=== PATIENT | female | born 1980 | race Caucasian/White ===

== ENCOUNTER 2016-12-19 10:11 | Emergency (ER) | payer MEDICAID ==
[~2016-12-19] VITALS: Ht 175.3 cm; Wt 206.9 kg
[2016-12-19 10:13] VITALS: BP 119/76
[2016-12-19] MEDS ORDERED: MAALOX/HYOSCYAMINE/LIDOCAINE 45 ML BOTTLE PO ONE (11:30)
[2016-12-19] MEDS ORDERED: MAALOX/HYOSCYAMINE/LIDOCAINE 45 ML BOTTLE ONE (11:30)
[2016-12-19 12:09] LABS: BLOOD UREA NITROGEN 16 mg/dL (7-18)
[2016-12-19 12:15] LABS: IS PT STATUS REG ER OR PRE ER? YES
== END 2016-12-19 13:19 | disposition home or self-care (01) ==
LOC: ED 13:00
DX: S29.012A Strain of muscle and tendon of back wall of thorax, initial encounter (principal); R07.89 Other chest pain; Z90.49 Acquired absence of other specified parts of digestive tract; E66.9 Obesity, unspecified; X58.XXXA Exposure to other specified factors, initial encounter; Y93.89 Activity, other specified; Y92.89 Other specified places as the place of occurrence of the external cause; Y99.8 Other external cause status
CPT/HCPCS: 36415; 71010; 80048; 82040; 84484; 85025; 85379; 93005

== ENCOUNTER 2018-03-18 11:59 | Emergency (ER) | payer MEDICAID ==
[~2018-03-18] VITALS: Ht 172.7 cm; Wt 212.7 kg
[2018-03-18 12:13] VITALS: BP 145/92
[2018-03-18] MEDS ORDERED: DULO30CA2 PO (12:23)
[2018-03-18] MEDS ORDERED: HYDR-879 PO (12:23)
[2018-03-18] MEDS ORDERED: DEXAMETHASONE 4 MG TABLET ONE (13:25)
[2018-03-18] MEDS ORDERED: DEXAMETHASONE 4 MG TABLET PO ONE (13:30)
== END 2018-03-18 14:18 | disposition home or self-care (01) ==
LOC: ED 13:35
DX: J02.8 Acute pharyngitis due to other specified organisms (principal); B97.89 Other viral agents as the cause of diseases classified elsewhere; Z90.49 Acquired absence of other specified parts of digestive tract; H92.09 Otalgia, unspecified ear
CPT/HCPCS: 99282